=== PATIENT | female | born 1985 | race Caucasian/White ===

== ENCOUNTER 2019-02-15 15:58 | Emergency (ER) | payer OTHER ==
--- NOTE | 2019-02-15 16:10 | PDOC ---
Rapid Medical Evaluation Time Seen by Provider: 02/15/19 16:08 Medical Evaluation: Allergies Allergy/AdvReac Type Severity Reaction Status Date / Time No Known Allergies Allergy Verified 12/13/13 11:10 02/15/19 16:09 This patient had a brief in-person evaluation by me. cc: right ankle swelling and pain since last night Reports visiting [facility] and noticed redness and swelling on the plane PE: NAD unlabored breathing right ankle with redness and swelling Orders: right ankle xray, labs This patient will proceed to Ed for further evaluation Discharge Disposition - Diagnosis Right ankle pain - Referrals - Patient Instructions - Post Discharge Activity
[2019-02-15 16:11] VITALS: BP 122/79; PULSE 91; TEMP 98.6; BMI 23.5
--- NOTE | 2019-02-15 18:29 | PDOC ---
History of Present Illness - General Chief Complaint: Edema Stated Complaint: RT FOOT EDEMA Time Seen by Provider: 02/15/19 16:08 - History of Present Illness Initial Comments: Ms. Sims is a 34F with no significant PMH presenting with sudden onset of right lower extremity swelling that started around 3am this morning as she was getting on a plane from the [facility] to [place]. Reports swelling of the right calf and foot. Describes her foot as warm and painful. Denies weakness. Denies bleeding. Denies fever, cough, shortness of breath. Reports food poisoning and diarrhea while in the [facility]. Uses a Mirena IUD. Tried Naproxen 2x today with minimal relief. Past History - Past Medical History Allergies/Adverse Reactions: Allergies Allergy/AdvReac Type Severity Reaction Status Date / Time No Known Allergies Allergy Verified 02/15/19 16:11 Home Medications: Ambulatory Orders Ibuprofen [Motrin -] 600 mg PO Q4H PRN #1 tablet 11/22/11 Rx Tablet 1 PO DAILY #1 tab 11/22/11 Acetaminophen [Tylenol .Regular Strength -] 650 mg PO Q4H PRN #0 tablet Ibuprofen [Motrin -] 600 mg PO Q4H PRN #0 tablet 12/16/13 Cephalexin [Keflex] 500 mg PO Q6H 5 Days #20 capsule 02/15/19 Asthma: No Cancer: No Cardiac Disorders: No COPD: No Diabetes: No HTN: No Seizures: No Thyroid Disease: No - Suicide/Smoking/Psychosocial Hx Smoking History: Never smoked Have you smoked in the past 12 months: No Information on smoking cessation initiated: No Hx Alcohol Use: No Drug/Substance Use Hx: No Hx Substance Use Treatment: No Review of Systems - Review of Systems Able to Perform ROS?: Yes Is the patient limited Hebrew proficient: No Constitutional: Yes: See HPI. No: Chills, Fever, Night Sweats HEENTM: Yes: See HPI. No: Blurred Vision, Recent change in vision, Double Vision Respiratory: Yes: See HPI. No: Cough, Shortness of Breath, Wheezing Cardiac (ROS): Yes: See HPI, Edema (RLE ). No: Chest Pain, Lightheadedness, Palpitations ABD/GI: Yes: See HPI, Diarrhea (while in [place], but this has resolved ). No: Abdominal Distended, Constipated, Nausea, Vomiting : Yes: See HPI. No: Burning, Dysuria Musculoskeletal: Yes: See HPI, Joint Swelling (right ankle ), Muscle Pain (RLE ) . No: Back Pain Integumentary: Yes: See HPI, Change in Color (RLE ), Erythema (RLE ). No: Bruising Neurological: Yes: See HPI. No: Headache, Seizure, Weakness, Unsteady Gait *Physical Exam - Vital Signs Last Vital Signs Temp Pulse Resp BP Pulse Ox 98.6 F 91 H 18 122/79 100 02/15/19 16:09 02/15/19 16:09 02/15/19 16:09 02/15/19 16:09 02/15/19 16:09 - Physical Exam General Appearance: Yes: Nourished, Appropriately Dressed. No: Apparent Distress HEENT: positive: EOMI, KEILA, Normal ENT Inspection, Normal Voice, Pharynx Normal Neck: positive: Trachea midline, Supple. negative: Rigid Respiratory/Chest: positive: Lungs Clear, Normal Breath Sounds. negative: Chest Tender, Respiratory Distress Cardiovascular: positive: Regular Rhythm, Regular Rate Vascular Pulses: Dorsalis-Pedis (R): 2+, Doralis-Pedis (L): 2+ Gastrointestinal/Abdominal: positive: Normal Bowel Sounds, Soft. negative: Tender Musculoskeletal: positive: Normal Inspection. negative: CVA Tenderness Extremity: positive: Normal Capillary Refill, Normal Range of Motion, Tender ( RLE), Pedal Edema (RLE), Swelling (right foot, ankle, and calf), Calf Tenderness , Erythema, Inflammation. negative: Delayed Capillary Refill Integumentary: positive: Normal Color, Dry, Warm, Erythema, Swelling (RLE). 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 right lower calf and foot is circumferentially swollen, neurovascularly intact, warm and tender to the touch. We'll obtain US venous duplex of RLE, XR of right ankle/foot, CBC, CMP, PT/PTT/ INR, serum test, type and screen. Concern for DVT vs necrotizing fasciitis. 02/15/19 18:51 Duplex venous US shows no DVT. 02/15/19 21:13 XR right foot shows no air bubbles and no fracture. 02/15/19 21:58 Pt does not have a DVT or necrotizing fasciitis. It is likely a hypersensitivity reaction due to a bug bite, as she was [place] the [place] in the [place]. We will provide 1 dose of Keflex IV here in the ED. We will discharge home with Keflex 500 mg q6h for 5 days and instructions to rest, ice, compress, and elevate. Return if swelling worsens or streaking appears. *DC/Admit/Observation/Transfer Diagnosis at time of Disposition: Insect bite of leg, right Qualifiers: Encounter type: initial encounter Qualified Code(s): S80.861A - Insect bite ( nonvenomous), right lower leg, initial encounter - Discharge Dispostion Disposition: HOME Condition at time of disposition: Stable Decision to Admit order: No - Prescriptions Prescriptions: Cephalexin [Keflex] 500 mg PO Q6H 5 Days #20 capsule - Referrals Referrals: Jeremy Hensley [Primary Care Provider] - - Patient Instructions - Post Discharge Activity
[2019-02-15 19:19] LABS: BASO % 0.1 % (0-2.0); EOS % 0.8 % (0-4.5); HEMATOCRIT 35.3 % (32.4-45.2); HEMOGLOBIN 12.1 GM/dL (10.7-15.3); LYMPH % 19.2 % (8-40); MCH 29.7 pg (25.7-33.7); MCHC 34.2 g/dl (32.0-36.0); MEAN CELL VOLUME 86.8 fl (80-96); MEAN PLT VOLUME 9.7 fl (7.5-11.1); MONO % 7.2 % (3.8-10.2); NEUT % 72.7 % (42.8-82.8); PLATELET COUNT 206 K/MM3 (134-434); RBC 4.07 M/mm3 (3.60-5.2); WHITE BLOOD COUNT 6.9 K/mm3 (4.0-10.0)
[2019-02-15 19:27] LABS: PROTHROMBIN TIME (PATIENT) 11.8 SEC (9.7-13.0)
[2019-02-15 19:30] LABS: ACTIVATED PTT 25.9 SECONDS (25.2-36.5)
[2019-02-15 19:35] LABS: BILIRUBIN,TOTAL 0.3 mg/dL (0.2-1); BLOOD UREA NITROGEN 11.2 mg/dL (7-18); CALCIUM 8.8 mg/dL (8.5-10.1); CREATININE 0.7 mg/dL (0.55-1.3); POTASSIUM 3.9 mmol/L (3.5-5.1)
[2019-02-15] MEDS ORDERED: CEFAZOLIN 1 GM in DEXTROSE 5%-WATER - 50 ML IVPB ONE (22:02)
[2019-02-15] MEDS ORDERED: CEFAZOLIN 1 GM/D5W 1 GM/50 ML BAG ONE (22:05)
--- NOTE | 2019-02-15 22:15 | PDOC ---
Documentation entered by Laila Richardson SCRIBE, acting as scribe for Candace Manning MD. Candace Manning MD: This documentation has been prepared by the Dylan medellin Sammi, SCRIBE, under my direction and personally reviewed by me in its entirety. I confirm that the documentation accurately reflects all work, treatment, procedures, and medical decision making performed by me. Attending Attestation - Resident Resident Name: Didier Jones - ED Attending Attestation I have performed the following: I have examined & evaluated the patient, The case was reviewed & discussed with the resident, I agree w/resident's findings & plan, Exceptions are as noted - HPI HPI: 02/15/19 18:36 The patient is a 34 year old female, with no significant PMH, who presents to the emergency department for evaluation of 1 day of right lower extremity edema. The patient reports she was on a plane coming home from the [facility] at around 3am this morning when she noticed swelling and warmth to the right calf, ankle, and foot. Denies trauma or injury. Denies fever, chills, chest pain, SOB. She notes she experienced nausea, vomiting, and diarrhea while visiting the [facility]. - Physicial Exam PE: 02/15/19 22:02 GENERAL: Well-appearing, well-nourished. No apparent distress. HEENT: Normocephalic, atraumatic. PERRL, EOM intact. CARDIOVASCULAR: Normal S1, S2. Regular rate and rhythm. PULMONARY: Clear to auscultation bilaterally. ABDOMEN: Soft, non-distended, non-tender. EXTREMITIES: (+)right lower extremity edematous from toes to mid calf. (+) lateral malleolus well circumscribed erythematous 4cm area (+)back of calf well circumscribed erythematos patch No streaking, no fluctuance, no vessels, non tender SKIN: Warm, dry. NEUROLOGICAL: No focal neurological deficits. - Medical Decision Making 02/15/19 22:05 duplex doppler is negative for DVT labs reviewed and they are unremarkablele she has no fever,no significant tenderness on that rt leg imp: dependent edema, possible bug bites-she had [place] will be started on antibiotics, she is reveicing her first dose now and given a RX at her pharmavy plan If the area of redness increases,if she dev any pain or fever-she is to return immediately for admission and IV antibiotics 02/15/19 22:14
== END 2019-02-15 22:58 | disposition home or self-care (01) ==
LOC: JER 15:58
DX: S80.861A Insect bite (nonvenomous), right lower leg, initial encounter (principal); W57.XXXA Bitten or stung by nonvenomous insect and other nonvenomous arthropods, initial encounter; Y93.01 Activity, walking, marching and hiking; Y92.821 Forest as the place of occurrence of the external cause; Y99.8 Other external cause status
CPT/HCPCS: 36415; 73610-TC-RT-FY; 73630-TC-RT-FY; 80053; 84703; 85025; 85610; 85730; 86850; 86900; 86901; 93971-TC; 99282-25